=== PATIENT | female | born 1980 | race Hispanic/Latino ===

== ENCOUNTER 2016-10-27 01:27 | Emergency (ER) | payer BC ==
[2016-10-27 01:48] VITALS: BP 99/65; PULSE 117; O2SAT 96; BMI 21.9
[2016-10-27 01:54] VITALS: RESP 16; TEMP 98.6
[2016-10-27] MEDS ORDERED: Amoxicillin-Clav 875-125 mg Tab PO STA (02:04)
--- NOTE | 2016-10-27 02:10 | ED PDOC ---
Arrival/HPI - General Chief Complaint: Fever Time Seen by Provider: 10/27/16 01:52 Historian: Patient - History of Present Illness Narrative History of Present Illness (Text): 10/27/16 02:07 Lili Pike is a 36 year old female, with a history of hypercholesterolemia, mitral valve prolapse, and GERD, presents to the emergency department for evaluation of a fever of 103.5F and throat pain since yesterday morning. Patient reports that she took Tylenol for fever for minimal relief. Patient also notes of nasal and sinus congestion. Denies any headache, dizziness, chest pain, shortness of breath, abdominal pain, nausea, vomiting, diarrhea, or any other complaints at this time. Time/Duration: Other (yesterday morning ) Symptom Onset: Gradual Symptom Course: Unchanged Severity Level: Mild Activities at Onset: Light Past Medical History - Provider Review Nursing Documentation Reviewed: Yes - Cardiac Hx Cardiac Disorders: Yes (mitral valve prolapse) - Pulmonary Hx Respiratory Disorders: No - Neurological Hx Neurological Disorder: No - HEENT Hx HEENT Disorder: No - Renal Hx Renal Disorder: No - Endocrine/Metabolic Hx Endocrine Disorders: No - Hematological/Oncological Hx Blood Disorders: No - Integumentary Hx Dermatological Disorder: No - Musculoskeletal/Rheumatological Hx Musculoskeletal Disorders: No - Gastrointestinal Hx Gastrointestinal Disorders: Yes (gerd) - Genitourinary/Gynecological Hx Genitourinary Disorders: No - Psychiatric Hx Psychophysiologic Disorder: No Hx Depression: No Hx Emotional Abuse: No Hx Physical Abuse: No Hx Substance Use: No - Anesthesia Hx Anesthesia: No Hx Anesthesia Reactions: No - Suicidal Assessment Feels Threatened In Home Enviroment: No Family/Social History - Physician Review Nursing Documentation Reviewed: Yes Family/Social History: No Known Family HX Smoking Status: Never Smoked Hx Alcohol Use: No Hx Substance Use: No Hx Substance Use Treatment: No Allergies/Home Meds Allergies/Adverse Reactions: Allergies No Known Allergies Allergy (Verified 10/27/16 01:47) Home Medications: Home Meds Medication Instructions Recorded Confirmed Norgestimate-Ethinyl Estradiol 1 tab PO 01/04/12 01/04/12 [Trinessa 28 35 Mcg-0.25 mg] Review of Systems - Physician Review All systems were reviewed & negative as marked: Yes - Review of Systems Constitutional: Fevers ENT: Sore Throat, Sinus Congestion Respiratory: absent: SOB, Cough, Sputum Cardiovascular: absent: Chest Pain Gastrointestinal: absent: Abdominal Pain, Diarrhea, Nausea, Vomiting Neurological: Normal. absent: Headache, Dizziness Psychiatric: Normal Physical Exam Vital Signs Reviewed: Yes Vital Signs Temp Pulse Resp BP Pulse Ox 10/27/16 01:48 98.6 F 117 H 16 99/65 L 96 10/27/16 01:47 98.3 F 117 H 18 99/65 L 96 Temperature: Afebrile Blood Pressure: Normal Pulse: Tachycardic Respiratory Rate: Normal Appearance: Positive for: Well-Appearing, Non-Toxic, Comfortable Pain Distress: None Mental Status: Positive for: Alert and Oriented X 3 - Systems Exam Head: Present: Atraumatic, Normocephalic Pupils: Present: PERRL Extroacular Muscles: Present: EOMI Conjunctiva: Present: Normal Mouth: Present: Moist Mucous Membranes Pharnyx: Present: ERYTHEMA (posterior pharynx and tonsils ). No: EXUDATE, Uvular Deviation, Strider Nose (Internal): Present: Other (nasal sinus congestion ) Neck: Present: Normal Range of Motion. No: MIDLINE TENDERNESS Respiratory/Chest: Present: Clear to Auscultation, Good Air Exchange. No: Respiratory Distress, Accessory Muscle Use Cardiovascular: Present: Regular Rate and Rhythm, Normal S1, S2. No: Murmurs Abdomen: Present: Normal Bowel Sounds. No: Tenderness, Distention, Peritoneal Signs Upper Extremity: Present: Normal Inspection. No: Cyanosis, Edema Lower Extremity: Present: Normal Inspection. No: Edema Neurological: Present: GCS=15, CN II-XII Intact, Speech Normal, Motor Func Grossly Intact, Normal Sensory Function Skin: Present: Warm, Dry, Normal Color. No: Rashes Psychiatric: Present: Alert, Oriented x 3, Normal Insight, Normal Concentration Medical Decision Making ED Course and Treatment: 10/27/16 02:26 Impression: A 36 year old female who presents to the emergency department for evaluation of fever and throat pain since yesterday morning. Plan: -- Amoxil -- Decadron -- Reassess and disposition Progress Notes: 10/27/16 02:27 Patient is stable for discharge. Will discharge patient home on antibiotics for Tonsillitis and sinusitis. Advised to follow up with PMD within few days and present back to emergency department if symptoms worsen. - Medication Orders Current Medication Orders: Discontinued Medications Amoxicillin/Clavulanate Potassium (Augmentin 875 Mg-125 Mg Tab) 1 tab PO ONCE STA PRN Reason: Protocol Stop: 10/27/16 02:05 Last Admin: 10/27/16 02:44 Dose: 1 TAB Dexamethasone (Decadron Inj) 10 mg IM ONCE ONE Stop: 10/27/16 02:10 Last Admin: 10/27/16 02:44 Dose: 10 MG IM Administration Charges Document 10/27/16 02:44 RJWendy (Rec: 10/27/16 02:44 [facility] [id number] Injection Site MAR Injection Site Right Deltoid Charges for Administration # of IM Administrations 1 - Scribe Statement The provider has reviewed the documentation as recorded by the Amara Neves Provider Attestation: All medical record entries made by the Amara were at my direction and personally dictated by me. I have reviewed the chart and agree that the record accurately reflects my personal performance of the history, physical exam, medical decision making, and the department course for this patient. I have also personally directed, reviewed, and agree with the discharge instructions and disposition. Disposition/Present on Arrival - Present on Arrival Any Indicators Present on Arrival: No History of DVT/PE: No History of Uncontrolled Diabetes: No Urinary Catheter: No History of Decub. Ulcer: No History Surgical Site Infection Following: None - Disposition Have Diagnosis and Disposition been Completed?: Yes Diagnosis: Tonsillitis, Sinusitis Disposition: HOME/ ROUTINE Disposition Time: 02:14 Patient Plan: Discharge Condition: GOOD Discharge Instructions (ExitCare): Tonsillitis (ED), Sinusitis (ED) Additional Instructions: Drink plenty of cool liquids/take meds as prescribed/follow up with your doctor this week Prescriptions: Fexofenadine/Pseudoephedrine [Soraida-D 12 Hour Tablet] 1 each PO BID PRN #24 tab.er.12h PRN Reason: Nasal Congestion Amoxicillin/Clavulanate [Augmentin 875 MG-125 MG] 1 tab PO BID #20 tab Forms: WORK NOTE
== END 2016-10-27 02:59 | disposition home or self-care (01) ==
LOC: ED 01:27
DX: J32.9 Chronic sinusitis, unspecified (principal); J03.90 Acute tonsillitis, unspecified
CPT/HCPCS: 96372; 99282; J1100